=== PATIENT | female | born 1935 ===

== ENCOUNTER 2017-05-01 19:22 | Outpatient (CLI) | payer MEDICARE, OTHER | END 2017-05-01 19:23 | disposition short-term general hospital (02) | LOC: EMS 19:22 | PROVIDERS: ATTEND Surgery | DX: R53.1 Weakness (principal) | CPT/HCPCS: A0425; A0429 ==

== ENCOUNTER 2021-03-26 13:55 | Outpatient (CLI) | payer MEDICARE, OTHER | END 2021-03-26 13:56 | disposition EMS.NT | LOC: EMS 13:55 | DX: Z03.89 Encounter for observation for other suspected diseases and conditions ruled out (principal) ==

== ENCOUNTER 2021-06-21 16:58 | Outpatient (CLI) | payer MEDICARE, OTHER | END 2021-06-21 16:59 | disposition EMS.NT | LOC: EMS 16:58 | DX: R53.1 Weakness (principal) ==

== ENCOUNTER 2021-07-29 17:06 | Outpatient (CLI) | payer MEDICARE, OTHER | END 2021-07-29 17:07 | disposition EMS.NT | LOC: EMS 17:06 | DX: R53.1 Weakness (principal) ==

== ENCOUNTER 2021-09-06 15:00 | Outpatient (CLI) | payer MEDICARE, OTHER | END 2021-09-06 15:01 | disposition EMS.NT | LOC: EMS 15:00 | DX: Z03.89 Encounter for observation for other suspected diseases and conditions ruled out (principal) ==

== ENCOUNTER 2021-09-20 13:10 | Outpatient (CLI) | payer MEDICARE, OTHER | END 2021-09-20 13:11 | disposition EMS.NT | LOC: EMS 13:10 | DX: R53.1 Weakness (principal) ==

== ENCOUNTER 2022-02-07 18:01 | Outpatient (CLI) | payer MEDICARE, OTHER | END 2022-02-07 18:02 | disposition EMS.NT | LOC: EMS 18:01 | DX: R53.1 Weakness (principal) ==